=== PATIENT | female | born 1975 | race Two or more races ===

== ENCOUNTER 2018-09-08 01:54 | Emergency (ER) | payer OTHER, BC ==
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
[2018-09-08 03:04] VITALS: BP 122/78
== END 2018-09-08 03:16 | disposition home or self-care (01) ==
PROC: 0HQ1XZZ Repair Face Skin, External Approach (ICD-10-PCS; principal; 2018-09-08)
DX: S01.81XA Laceration without foreign body of other part of head, initial encounter (principal); Y00.XXXA Assault by blunt object, initial encounter; Y99.0 Civilian activity done for income or pay; Y92.129 Unspecified place in nursing home as the place of occurrence of the external cause; Y93.9 Activity, unspecified